=== PATIENT | female | born 2005 | race Caucasian/White ===

== ENCOUNTER → 2024-06-16 17:54 | Outpatient (CLI) | payer SELFPAY ==
[2024-06-16 18:51] LABS: Influenza A - CEPHEID Flu A NEGATIVE (NEGATIVE); Influenza B - CEPHEID Flu B NEGATIVE (NEGATIVE); Respiratory Syncytial Virus Negative (Negative)
[2024-06-16 19:16] LABS: COVID-19 CEPHEID 4-PLEX PCR Negative (Negative)
== END ==
PROVIDERS: Visit Provider Student in an Organized Health Care Education/Training Program
DX: Z20.828 Contact with and (suspected) exposure to other viral communicable diseases (principal)
CPT/HCPCS: 0241U

== ENCOUNTER 2024-06-16 18:11 | Emergency (ER) | payer SELFPAY ==
[2024-06-16] VITALS (8 sets, daily range): BP systolic 97–126; BP diastolic 57–76; PULSE 128–148; RESP 14–30; TEMP 37.3; O2SAT 96–98; BMI 23.3
[2024-06-16] MEDS: ALBUTEROL 2.5 MG/3 ML NEB (ADULT) 10 MG INH (18:30)
[2024-06-16] MEDS: predniSONE 20 MG TABLET PO (18:37)
--- NOTE | 2024-06-16 18:47 | ED.ASTHMA ---
HPI - Asthma General Chief Complaint: Asthma Stated Complaint: SOB, asthma Time Seen by Provider: 06/16/24 18:28 Source: patient Mode of arrival: Ambulatory History of Present Illness HPI Narrative: Patient is a 19-year-old female. Has a history of asthma. Has an albuterol inhaler at home. Was sent to the emergency department from the walk-in clinic for evaluation of a asthma attack that has been going on for the past 2-3 days. She has been using her albuterol inhaler at home without much improvement of the symptoms. She did receive a DuoNeb in the walk-in clinic prior to coming to the ER. She stated that that did help her symptoms somewhat but she was not completely back to normal. Afebrile. Is having a cough. Has nonproductive cough. Related Data Home Medications Medication Instructions Recorded Confirmed albuterol sulfate 90 mcg/actuation 1 inh inhalation ONCE 02/25/24 02/25/24 aerosol inhaler Previous Rx's Medication Instructions Recorded azithromycin 250 mg tablet See Rx Instructions PO .COMPLEX #6 02/25/24 tabs benzonatate 200 mg capsule 200 mg PO TID PRN cough #30 caps 02/25/24 guaifenesin 1,200 mg tablet, 1,200 mg PO Q12H #30 tabs 02/25/24 extended release 12 hr prednisone 20 mg tablet 40 mg (2 x 20 mg) PO DAILY #10 tabs 02/25/24 albuterol sulfate 90 mcg/actuation 2 puff inhalation Q4-6H PRN 06/16/24 aerosol inhaler shortness of breath or wheezing #8.5 grams albuterol sulfate 90 mcg/actuation 2 puff inhalation Q4-6H PRN 06/16/24 aerosol inhaler shortness of breath or wheezing #8.5 grams prednisone 20 mg tablet 20 mg PO DAILY #7 tabs 06/16/24 prednisone 20 mg tablet 20 mg PO DAILY #7 tabs 06/16/24 Allergies Allergy/AdvReac Type Severity Reaction Status Date / Time No Known Drug Allergies Allergy Verified 06/16/24 17:53 Review of Systems Review of Systems Narrative: See HPI Patient History Social History Smoking Status: Never smoker Smoking Status: Never smoker alcohol intake frequency: holidays/special occasions only Substance Use Type: marijuana Exam Initial Vital Signs Initial Vital Signs: Vital Signs Temperature 99.2 F 06/16/24 18:13 Pulse Rate 130 H 06/16/24 18:13 Respiratory Rate 26 H 06/16/24 18:13 Blood Pressure 126/76 06/16/24 18:13 Pulse Oximetry 98 06/16/24 18:13 Oxygen Delivery Method Room Air 06/16/24 18:13 [facility] Head: normal to inspection and normocephalic Resp Effort & Inspection: cough, no retractions and tachypneic Auscultation: rhonchi and wheezes Cardio Rate: tachycardic Rhythm: regular rhythm Course Orders Ordered: ED Orders 06/16/24 18:21 RT Consult Eval and Treat NOW Discontinued Medications Albuterol (Albuterol 2.5 Mg/3 Ml Neb (Adult)) 10 mg INH NOW ONE Stop: 06/16/24 18:27 Last Admin: 06/16/24 18:30 Dose: 10 mg Documented By: ERASTO Albuterol (Albuterol Hfa Prepack) 1 box MISC DIRECTED ONE Stop: 06/16/24 20:20 Last Admin: 06/16/24 20:31 Dose: 1 box Documented By: SUSI Ipratropium [place] (Ipratropium 0.5 Mg/2.5 Ml Neb) 1 mg INH NOW ONE Stop: 06/16/24 19:21 Last Admin: 06/16/24 19:38 Dose: 1 mg Documented By: Prednisone (Prednisone 20 Mg Tablet) 20 mg PO NOW ONE Stop: 06/16/24 18:31 Last Admin: 06/16/24 18:37 Dose: 20 mg Documented By: SUSI Vital Signs Vital signs: Vital Signs - 8 hr 06/16/24 18:13 06/16/24 18:27 06/16/24 18:30 Temperature 99.2 F Pulse Rate 130 H 139 H 137 H Respiratory Rate 26 H 27 H 30 H Blood Pressure 126/76 Pulse Oximetry 98 96 97 Oxygen Delivery Method Room Air Room Air Oxygen Flow Rate 0 Fraction of Inspired Oxygen 21 06/16/24 18:30 06/16/24 18:30 06/16/24 19:00 Temperature Pulse Rate 135 H Respiratory Rate 27 H Blood Pressure 110/67 106/70 Pulse Oximetry 96 Oxygen Delivery Method Oxygen Flow Rate Fraction of Inspired Oxygen 06/16/24 19:00 06/16/24 19:30 06/16/24 19:30 Temperature Pulse Rate 148 H 134 H Respiratory Rate 27 H 28 H Blood Pressure 97/59 L Pulse Oximetry 98 98 Oxygen Delivery Method Oxygen Flow Rate Fraction of Inspired Oxygen 06/16/24 20:00 06/16/24 20:01 06/16/24 20:01 Temperature Pulse Rate 128 H 132 H Respiratory Rate 26 H 20 Blood Pressure 100/61 Pulse Oximetry 96 98 Oxygen Delivery Method Oxygen Flow Rate Fraction of Inspired Oxygen 06/16/24 20:35 Temperature Pulse Rate 129 H Respiratory Rate 14 Blood Pressure 99/57 L Pulse Oximetry 98 Oxygen Delivery Method Room Air Oxygen Flow Rate Fraction of Inspired Oxygen MDM - Asthma MDM Narrative Medical decision making narrative: After treatments here in the emergency department the patient was remained tachycardic I suspect that this is because of the albuterol. She was still having bilateral diffuse wheezing but much better than when she arrived. States she does feel better. Had a long discussion with her regarding her options. Options included being discharged home with steroids and a refill of her albuterol inhaler with a spacer versus further observation here in the ER versus another nebulizer treatment. After this discussion patient stated that she felt like she could go home. We will hold on any antibiotics for now. Will send home with a prescription for steroids for the next couple days as well. She was given return precautions. She expressed understanding and agreement with plan. Discharge Plan Departure Patient Disposition: Home Clinical Impression: Asthma with acute exacerbation Instructions: DI for Asthma -- Adult Activity Restrictions/Additional Instructions: Continue to use your albuterol inhaler at home with a spacer. I do recommend that you take 2 puffs every 4 hours while you are awake. Also a prescription for steroids was sent to [place]. Take them like we discussed. Return to the emergency department for new or worsening symptoms. Prescriptions: New albuterol sulfate 90 mcg/actuation HFA aerosol inhaler 2 puff inhalation Q4-6H PRN (Reason: shortness of breath or wheezing) Qty: 8.5 2RF prednisone 20 mg tablet 20 mg PO DAILY Qty: 7 0RF prednisone 20 mg tablet 20 mg PO DAILY Qty: 7 0RF albuterol sulfate 90 mcg/actuation HFA aerosol inhaler 2 puff inhalation Q4-6H PRN (Reason: shortness of breath or wheezing) Qty: 8.5 2RF No Action albuterol sulfate 90 mcg/actuation HFA aerosol inhaler 1 inh inhalation ONCE benzonatate 200 mg capsule 200 mg PO TID PRN (Reason: cough) Qty: 30 0RF guaifenesin 1,200 mg tablet extended release 12hr 1,200 mg PO Q12H Qty: 30 0RF azithromycin 250 mg tablet See Rx Instructions PO .COMPLEX Qty: 6 0RF Rx Instructions: For 250 mg dose pack: take 500 mg today (day 1), then 250 mg for 4 days (days 2-5) PO prednisone 20 mg tablet 40 mg PO DAILY Qty: 10 0RF Referrals: Miscellaneous,Doctor, MD [Primary Care Provider] - Stand Alone Forms: Patient Portal/API
--- NOTE | 2024-06-16 19:02 | RT ---
Breathing treatment stopped at 1846 d/t significant HR increase. Dr. Pereira notified. RN aware.
[2024-06-16] MEDS: IPRATROPIUM 0.5 MG/2.5 ML NEB 1 MG INH (19:38)
[2024-06-16] MEDS: ALBUTEROL HFA PREPACK 1 BOX MISC (20:31)
== END 2024-06-16 20:39 | disposition home or self-care (01) ==
PROVIDERS: Emergency Provider Emergency Medicine
DX: J45.901 Unspecified asthma with (acute) exacerbation (principal); R00.0 Tachycardia, unspecified; R05.9 Cough, unspecified; Z20.828 Contact with and (suspected) exposure to other viral communicable diseases
CPT/HCPCS: 0241U; 94640; 99283; 99284; J7613

== ENCOUNTER → 2024-06-18 13:51 | Outpatient (CLI) | payer SELFPAY ==
--- NOTE | 2024-06-18 13:52 | DI.RAD.S_ITS ---
PROCEDURE: XR CHEST 2V INDICATIONS: Wheezing, short of breath, rhonchi TECHNIQUE: 2 views of the chest were acquired. COMPARISON: None. FINDINGS: Surgical changes and devices: None. Lungs and pleura: Lungs are clear. No pleural effusions or pneumothorax. Mediastinum: Mediastinal contours are normal. Heart size is normal. Bones and chest wall: No suspicious bony abnormalities. Soft tissues appear unremarkable. Incidental note is made of a metallic body ornamentation artifact. IMPRESSION: No focal infiltrates are seen. No acute cardiopulmonary abnormality is seen. Dictated by: Eladio Mcneill M.D. on 06/18/2024 at 13:32 Approved by: Eladio Mcneill M.D. on 06/18/2024 at 13:33
== END ==
LOC: RAD 13:51
PROVIDERS: Referring Provider Physician Assistant Surgical; Visit Provider Physician Assistant Surgical
DX: R06.2 Wheezing (principal); R06.02 Shortness of breath
CPT/HCPCS: 71046